=== PATIENT | female | born 1970 | race Two or more races ===

== ENCOUNTER 2023-06-16 12:07 | Emergency (ER) | payer OTHER ==
[~2023-06-16] VITALS: Ht 160 cm; Wt 88.0 kg
[~2023-06-16 12:07] MED LIST: AZOR 10/20 MG T1 TAB; KETO10TA2 PO; PNEU16DI2; SEPTRA DS TABLE1 TAB PO; SYNTHROID137 MCG; URETRON DS1 TAB PO
[2023-06-16] MEDS ORDERED: CANDESARTAN-HC1 EAC1 PO (12:56)
[2023-06-16] MEDS ORDERED: CLONAZEPAM2 MG PO (12:57)
[2023-06-16] MEDS ORDERED: TRAZODONE HCL150 MG PO (12:58)
== END 2023-06-16 14:27 | disposition home or self-care (01) ==
LOC: ER 12:08
DX: M43.6 Torticollis (principal); Z88.8 Allergy status to other drugs, medicaments and biological substances